=== PATIENT | female | born 1985 | race Caucasian/White ===

== ENCOUNTER 2016-10-12 10:12 | Emergency (ER) | payer OTHER ==
[2016-07-13 10:22] VITALS: BMI 47.6
[~2016-10-12 10:12] MED LIST: FERROUS SULFAT325 MG PO; HYDROCODONE-APA1 TAB PO; IBUPROFEN600 MG PO; PRENATAL COMPLE1 TAB PO; PROTONIX40 MG PO
[2016-10-12 11:02] LABS: BASOPHILS 0.1 % (0.0-2.0); EOSINOPHILS 2.9 % (0-7); HEMATOCRIT 38.1 % (36.0-48.0); IMMATURE GRANULOCYTES 0.3 % (0-5); MCH 26.5 pg (26.0-34.0); MCHC 31.5 g/dL (31.0-37.0); MCV 84.1 fL (80.0-100.0); MEAN PLATELET VOLUME 9.4 fL (7.4-10.4); MONOCYTES 5.5 % (2-11); NEUTROPHILS 60.2 % (40-80); PLATELET COUNT 341 10x3/uL (130-400); RBC 4.53 10x6/uL (4.00-5.40); RDW 14.9 % (11.5-14.5); WBC 9.5 10x3/uL (4.8-10.8)
== END 2016-10-12 14:22 | disposition home or self-care (01) ==
LOC: D.ER 10:12
PROVIDERS: Emergency Medicine
DX: B37.89 Other sites of candidiasis (principal); F32.9 Major depressive disorder, single episode, unspecified; F41.9 Anxiety disorder, unspecified